=== PATIENT | male | born 1960 | race Caucasian/White ===

== ENCOUNTER → 2016-03-02 | Outpatient (CLI) | payer OTHER ==
[~2016-03-02] MED LIST: ATOR20TA66 PO; ATOR40TA70 PO; CELE100C PO; DIOVAN; FENT1PAT8 TD; HCT25T; HYDR-3731 PO; NIAC1TBM27; PNT40TEC PO; VALS1TAB12; VALS1TAB14 PO; ZLP10T
--- OUTSIDE RECORDS SUMMARY | 2016-03-02 13:43 | XMS REPORT | Continuity of Care Document ---
Author Author [facility] Organization [facility] Address Unknown Phone Unavailable Care Team Providers Care Apartment Manager Name Role Phone CODY GUY MD PCP Insurance Providers Payer Name Policy Number Subscriber Name Relationship Hermilo Bowman [id number] Kathi Purcell 18 Self / Same As Patient [facility] [id number] Kathi Purcell Self / Same As Patient Advance Directives Directive Response Recorded Date/Time Advance Directives No 11/23/15 6:14pm Health Care Power of Service Learning Coordinator No 11/23/15 6:14pm Organ Donor Yes 11/23/15 6:14pm Resuscitation Status Full Code 11/23/15 6:14pm Chief Complaint and Reason for Visit Chief Complaint T-4 COMPRESSION FX, HEAD INJURY, ABD CONTUSION Reason for Visit Head injury Traumatic compression fracture of T4 thoracic vertebra Problems Active Problems Medical Problem Onset Date Status Head injury Unknown Acute Traumatic compression fracture of T4 thoracic vertebra Unknown Acute Medications Current Home Medications Medication Dose Units Route Directions Days/Qty Instructions Start Date Valsartan/Hydrochlorothiazide 1 Each 1 Tab Oral Daily 11/23/15 Atorvastatin Calcium 20 Mg 20 Mg Oral Daily 11/23/15 Celecoxib 100 Mg 100 Mg Oral Twice A Day With Meals 60 11/24/15 Fentanyl 1 Each 25 Mcg Transderm Every 72 Hours 10 11/24/15 Hydrocodone/Acetaminophen 1 Each 1 Each Oral Q4hr for Pain 60 11/24/15 Past Home Medications Medication Directions Ordered Status [Diovan 160/25] , 07/16/07 Discontinued Zolpidem Tartrate 10 Mg Tablet, 07/16/07 Discontinued Hydrochlorothiazide 25 Mg Tablet, 07/16/07 Discontinued Hctz/Valsartan 1 Each Tablet, 02/08/09 Discontinued Niacin/Simvastatin 1 Each Tbmp.24hr, 02/08/09 Discontinued Atorvastatin Calcium 40 Mg Tablet, 40 Mg Oral Daily 06/26/12 Discontinued Pantoprazole Sod 40 Mg Tab, 40 Mg Oral Daily 06/26/12 Discontinued Social History Social History Problem Response Recorded Date/Time Alcohol Use Occasionally Uses 11/23/2015 6:07pm Recreational Drug Use No 11/23/2015 6:07pm Recent Foreign Travel No 11/23/2015 5:59pm Recent Infectious Disease Exposure No 11/23/2015 5:59pm Hospitalization with Isolation Denies 11/24/2015 10:41pm Smoking Status Current Everyday Smoker 11/23/2015 6:06pm Type Used Cigars 11/24/2015 10:41pm Recent Hopitalizations Yes 11/23/2015 6:07pm Hospitalization with Isolation Denies 11/24/2015 10:41pm Query Response Start Date Stop Date Smoking Status Current Everyday Smoker Hospital Discharge Instructions No hospital discharge instructions. Plan of Care Discharge Date 11/24/15 9:45pm Disposition 01 HOME, SELF-CARE Instructions/Education Provided Vertebral Compression Fracture (DC) Forms Provided Follow-Up Fax Prescriptions See Medication Section Referrals CODY GUY MD (Unspecified) - 1 Week Address: [address] [place] [address], [address] [place] [phone] Reason(s) for Referral: CALL TOMORROW TO SCHEDULE A FOLLOW-UP APPOINTMENT FOR 1 WEEK. CAMILA MILLIGAN DO (Unspecified) - 11/30/15 Address: [address] [place] [phone] Reason(s) for Referral: CALL TOMORROW TO SCHEDULE A KYPHOPLASTY Care Plan and Goals Functional Status Query Response Date Recorded Patient Orientation Person Place Time Situation November 24, 2015 10:41pm Comprehension Ability Understands Concepts November 24, 2015 3:00pm Allergies, Adverse Reactions, Alerts No known allergies. Immunizations Name Given Type FLU TRIvalent 5 years - Adult 11/23/15 Administered Vital Signs Acute Vital Signs Vital Response Date/Time Temperature (Fahrenheit) 95.0 degrees F (97.6 - 99.5) 11/24/2015 9:30pm Temperature (Calculated Celsius) 35.72240 degrees C (36.4 - 37.5) 11/24/2015 8:00pm Temperature Source Tympanic 11/24/2015 9:30pm Pulse Rate (adult) 68 bpm (60 - 90) 11/24/2015 9:30pm Respiratory Rate 20 bpm (12 - 24) 11/24/2015 9:30pm O2 Sat by Pulse Oximetry 95 % (88 - 100) 11/24/2015 9:30pm Blood Pressure 135/76 mm Hg 11/24/2015 9:30pm Blood Pressure Mean 111 mm Hg 11/24/2015 8:00pm Pain Numeric Pain Scale 3 11/24/2015 9:30pm Height (Feet) 5 feet 11/23/2015 5:58pm Height (Inches) 7.00 inches 11/23/2015 5:58pm Height (Calculated Centimeters) 170.088009 cm 11/23/2015 5:58pm Weight (Pounds) 238 pounds 11/23/2015 5:58pm Weight (Ounces) 8.0 oz 11/23/2015 5:58pm Weight (Calculated Grams) 780238.78 gm 11/23/2015 5:58pm Weight (Calculated Kilograms) 108.610795 kilograms 11/23/2015 5:58pm Calculated BMI 37.4 11/23/2015 5:58pm Capillary Refill Capillary Refill Less Than 3 Seconds 11/23/2015 12:30pm Results Laboratory Results Test Name Result Units Flags Reference Collection Date/Time Result Date/ Time Comments White Blood Count 14.0 10^3/uL H 4.3-11.0 11/23/2015 1:00pm 11/23/2015 1: 20pm Red Blood Count 5.37 10^6/uL 4.35-5.85 11/23/2015 1:00pm 11/23/2015 1: 20pm Hemoglobin 15.2 G/DL 13.3-17.7 11/23/2015 1:00pm 11/23/2015 1:20pm Hematocrit 44 % 40-54 11/23/2015 1:00pm 11/23/2015 1:20pm Mean Corpuscular Volume 81 FL 80-99 11/23/2015 1:00pm 11/23/2015 1: 20pm Mean Corpuscular Hemoglobin 28 PG 25-34 11/23/2015 1:00pm 11/23/2015 1: 20pm Mean Corpuscular Hemoglobin Concent 35 G/DL 32-36 11/23/2015 1:00pm 1:20pm Red Cell Distribution Width 13.0 % 10.0-14.5 11/23/2015 1:00pm 2015 1:20pm Platelet Count 285 10^3/uL 130-400 11/23/2015 1:00pm 11/23/2015 1:20pm Mean Platelet Volume 10.7 FL H 7.4-10.4 11/23/2015 1:00pm 11/23/2015 1: 20pm Sodium Level 139 MMOL/L 135-145 11/23/2015 1:45pm 11/23/2015 2:24pm Potassium Level 3.9 MMOL/L 3.6-5.0 11/23/2015 1:45pm 11/23/2015 2:24pm Chloride Level 108 MMOL/L H 98-107 11/23/2015 1:45pm 11/23/2015 2:24pm Carbon Dioxide Level 26 MMOL/L 21-32 11/23/2015 1:45pm 11/23/2015 2: 24pm Anion Gap 5 MMOL/L 5-14 11/23/2015 1:45pm 11/23/2015 2:24pm Blood Urea Nitrogen 13 MG/DL 7-18 11/23/2015 1:45pm 11/23/2015 2:24pm Creatinine 0.66 MG/DL 0.60-1.30 11/23/2015 1:45pm 11/23/2015 2:24pm BUN/Creatinine Ratio 20 11/23/2015 1:45pm 11/23/2015 2:24pm Estimat Glomerular Filtration Rate > 60 11/23/2015 1:45pm 2015 2:24pm GFR INTERPRETIVE DATA UNITS FOR ESTIMATED GFR (eGFR): mL/min/1.73 M2 REFERENCE RANGE FOR ESTIMATED GFR (eGFR) eGFR NORMAL eGFR >60 MODERATELY DECREASED eGFR 30-59 SEVERLY DECREASED eGFR 15-29 KIDNEY FAILURE <15 (OR DIALYSIS) Glucose Level 130 MG/DL H 70-105 11/23/2015 1:45pm 11/23/2015 2:24pm Calcium Level 8.3 MG/DL L 8.5-10.1 11/23/2015 1:45pm 11/23/2015 2:24pm Total Bilirubin 0.5 MG/DL 0.1-1.0 11/23/2015 1:45pm 11/23/2015 2:24pm Direct Bilirubin 0.2 MG/DL 0.0-0.3 11/23/2015 1:45pm 11/23/2015 2:24pm Indirect Bilirubin 0.3 MG/DL 11/23/2015 1:45pm 11/23/2015 2:24pm Alkaline Phosphatase 75 U/L 40-136 11/23/2015 1:45pm 11/23/2015 2:24pm Aspartate Amino Transf (AST/SGOT) 19 U/L 5-34 11/23/2015 1:45pm 2015 2:24pm Alanine Aminotransferase (ALT/SGPT) 21 U/L 0-55 11/23/2015 1:45pm 11/22 2:24pm Total Protein 6.0 G/DL L 6.4-8.2 11/23/2015 1:45pm 11/23/2015 2:24pm Albumin 3.7 G/DL 3.2-4.5 11/23/2015 1:45pm 11/23/2015 2:24pm Procedures No known history of procedures. Encounters Encounter Location Arrival/Admit Date Discharge/Depart Date Attending Provider Discharged Inpatient (obs) [facility] 11/23/15 2:24pm 9:45pm JOHANN LLANOS DO Recent Diagnosis Head injury Traumatic compression fracture of T4 thoracic vertebra
--- NOTE | 2016-03-02 14:42 | Diagnostic Imaging Report ---
EXAM: MRI THORACIC SPINE W/O CON INDICATION: COMPRESSION FRACTURE COMPARISON: None. FINDINGS: Mild right apex thoracic curvature. Alignment is otherwise normal. Compression deformity of the T4 vertebral body results in approximately 40% height loss. There is no edema within this vertebral body. No retropulsion of fragments. Vertebral body heights are otherwise maintained. Scattered benign hemangiomas in the T8, T9, T12 and L1 vertebral bodies. Mild scattered degenerative endplate changes result in no significant spinal canal or neural foraminal narrowing. No abnormal signal in the thoracic cord. The visualized paravertebral soft tissues are unremarkable. IMPRESSION: 1. Chronic compression deformity of the T4 vertebral body results in approximately 40% height loss. Vertebral body heights are otherwise maintained. 2. No neural impingement or cord signal abnormality in the thoracic spine. Dictated by: Dictated on workstation # [id number]
== END ==
LOC: RAD 13:40
PROVIDERS: ATTEND Orthopaedic Surgery
DX: S22.040A Wedge compression fracture of fourth thoracic vertebra, initial encounter for closed fracture (principal); X58.XXXA Exposure to other specified factors, initial encounter; Y99.8 Other external cause status
CPT/HCPCS: 72146

== ENCOUNTER 2016-03-25 07:58 | Outpatient (CLI) | payer OTHER ==
[~2016-03-25] VITALS: Ht 170.2 cm; Wt 104.3 kg
--- OUTSIDE RECORDS SUMMARY | 2016-03-25 08:01 | XMS REPORT | Continuity of Care Document ---
Author Author [facility] Organization [facility] Address Unknown Phone Unavailable Care Team Providers Care Plasma Cutting Machine Operator Name Role Phone CODY GUY MD PCP Insurance Providers Payer Name Policy Number Subscriber Name Relationship Hermilo Bowman [id number] Kathi Purcell 20 Self / Same As Patient [facility] [id number] Kathi Purcell Self / Same As Patient Advance Directives Directive Response Recorded Date/Time Advance Directives No 11/23/15 6:14pm Health Care Power of Mobile Home Lot Utility Worker No 11/23/15 6:14pm Organ Donor Yes 11/23/15 [...] GUY MD (Unspecified) - 1 Week Address: [address] [place] [address], [address] [place] [phone] Reason(s) for Referral: CALL TOMORROW TO SCHEDULE A FOLLOW-UP APPOINTMENT FOR 1 WEEK. CAMILA MILLIGAN DO (Unspecified) - 11/30/15 Address: [address] [place] [phone] Reason(s) for Referral: CALL TOMORROW TO [...] - 99.5) 11/24/2015 9:30pm Temperature (Calculated Celsius) 35.87615 degrees C (36.4 - 37.5) 11/24/2015 8:00pm [...] 7.00 inches 11/23/2015 5:58pm Height (Calculated Centimeters) 170.301785 cm 11/23/2015 5:58pm Weight (Pounds) 238 pounds 11/23/2015 5:58pm Weight (Ounces) 8.0 oz 11/23/2015 5:58pm Weight (Calculated Grams) 844065.78 gm 11/23/2015 5:58pm Weight (Calculated Kilograms) 108.266868 kilograms 11/23/2015 5:58pm Calculated BMI 37.4 11/23/2015 [...] Date Attending Provider Discharged Inpatient (obs) [facility] 11/23/15 2:24pm 9:45pm JOHANN LLANOS DO Recent Diagnosis Head injury Traumatic compression fracture of T4 thoracic vertebra
[2016-03-25] MEDS ORDERED: DEXAMETHASONE PF 10 MG/ML (DECADRON) VIAL ONE (08:03)
[2016-03-25 08:09] VITALS: BP 123/89
[2016-03-25 08:40] VITALS: BP 113/82
--- NOTE | 2016-03-25 09:16 | Pain Medicine-Procedure ---
Procedure Pre-Op/Post-Op Diagnosis Diagnosis: Thoracic pain Indications for Operation Thoracic pain Attending Surgeon Luan Procedure Date of Service: Mar 25, 2016 Procedure: Thoracic epidural at the T4-T5 Level under Fluoroscopic Guidance Procedure: Pt was identified in the holding area. After risks, benefits, and alternatives were discussed with the patient, informed consent was obtained. An IV was placed by nursing staff prior to procedure. Patient was brought to the fluoroscopy suite and placed prone on the operating table. A time out was performed. Vital signs were monitored throughout the procedure. The patients neck and mid back was prepped and draped in the usual sterile fashion. The patients skin was anesthetized using 1% Lidocaine. A 18 gauge tuohy needle was inserted and advanced to the T4-T5 epidural space under fluoroscopic guidance using the loss of resistance technique. The needle position was confirmed in the AP and lateral view. After negative aspiration 2 ml of non-ionic contrast was injected under live fluoroscopy which showed good spread of the contrast in the epidural space at the appropriate level, there was no intravascular or subarachnoid spread. Again, after negative aspiration, 3 ml of preservative free normal saline and 10 mg of dexamethasone was injected. The needle was removed and the patient was transferred to the recovery area in stable condition. And after a brief period of observation was discharged to home in stable condition with no new neurologic deficits. Complications None ROBBIE TEJADA MD Mar 25, 2016 9:16 am
== END 2016-03-25 08:43 | disposition home or self-care (01) ==
LOC: CARD 07:58
PROVIDERS: ATTEND Pain Medicine Pain Medicine
DX: M54.6 Pain in thoracic spine (principal); Z79.899 Other long term (current) drug therapy
CPT/HCPCS: 62321

== ENCOUNTER 2016-06-27 12:11 | Outpatient (CLI) | payer OTHER ==
[~2016-06-27] VITALS: Ht 170.2 cm; Wt 104.3 kg
[2016-06-27] MEDS ORDERED: BUPIVACAINE 0.25% 30 ML (SENSORCAINE) VIAL ONE (12:17)
[2016-06-27] MEDS ORDERED: TRIAMCINOLONE ACET (KENALOG-40) 40 MG/ML 1 ML VIAL ONE (12:17)
[2016-06-27 12:28] VITALS: BP 134/102
[2016-06-27] MEDS ORDERED: DEXAMETHASONE PF 10 MG/ML (DECADRON) VIAL ONE (12:33)
[2016-06-27 13:02] VITALS: BP 130/103
--- NOTE | 2016-06-27 16:07 | Pain Medicine-Procedure ---
Procedure Pre-Op/Post-Op Diagnosis Diagnosis: thoracalgia Indications for Operation Mid back pain Attending Surgeon Luan Procedure Date of Service: June 27, 2016 Procedure: Thoracic epidural steroid injection at T4-T5 Level under Fluoroscopic Guidance Procedure: Pt was identified in the holding area. After risks, benefits, and alternatives were discussed with the patient, informed consent was obtained. Patient was brought to the fluoroscopy suite and placed prone on the operating table. A time out was performed. Vital signs were monitored throughout the procedure. The patients neck and mid back was prepped and draped in the usual sterile fashion. The patients skin was anesthetized using 1% Lidocaine. A 18 gauge tuohy needle was inserted and advanced to the T4-T5 epidural space under fluoroscopic guidance using the loss of resistance technique. The needle position was confirmed in the AP and lateral view. After negative aspiration 2 ml of non-ionic contrast was injected under live fluoroscopy which showed good spread of the contrast in the epidural space at the appropriate level, there was no intravascular or subarachnoid spread. Again, after negative aspiration, 3 ml of preservative free normal saline and 10 mg of dexamethasone was injected. The needle was removed and the patient was transferred to the recovery area in stable condition. And after a brief period of observation was discharged to home in stable condition with no new neurologic deficits. Complications None ROBBIE TEJADA MD June 27, 2016 4:07 pm
== END 2016-06-27 13:04 | disposition home or self-care (01) ==
LOC: CARD 12:11
PROVIDERS: ATTEND Pain Medicine Pain Medicine
DX: M54.6 Pain in thoracic spine (principal); S22.04 Fracture of fourth thoracic vertebra
CPT/HCPCS: 62321

== ENCOUNTER 2017-01-05 12:07 | Outpatient (CLI) | payer OTHER ==
[~2017-01-05] VITALS: Ht 170.2 cm; Wt 104.3 kg
[2017-01-05 12:19] VITALS: BP 119/91
[2017-01-05] MEDS ORDERED: DEXAMETHASONE 10 MG/ML (DECADRON) 1 ML VIAL ONE (12:24)
[2017-01-05 13:08] VITALS: BP 138/96
--- NOTE | 2017-01-09 04:07 | OPERATIVE REPORT ---
DATE OF SERVICE: 01/05/2017 DIAGNOSIS: Thoracic spondylosis. PROCEDURE: Fluoroscopic-guided facet medial branch block T3, T4, T5 and T6 on the left side. PROCEDURE IN DETAIL: After obtaining informed consent from the patient, the patient's chart was reviewed. The patient was then brought to the procedure room and placed in prone position. Time-out was performed. The area and the left neck, upper back, lower back was prepped with antiseptic solution and under fluoroscopic guidance, the patient's T3 through T6 was examined and the facet joints listed above were identified. T3 through T6 was identified under fluoroscopy. A 22-gauge 3-1/2 inch spinal needle was inserted and advanced under fluoroscopy down to the area where the pedicle and the transverse process meet and approximately 1 mL of 1% lidocaine was injected at this level. This was then repeated for the remainder of the levels stated above. Afterwards, the needle was removed. Band-Aids were applied to all sites and the patient tolerated the procedure well and was taken to the recovery area in stable condition. COMPLICATIONS: None. Job ID: [id number] DocumentID: [id number] Dictated Date: 01/08/2017 20:28:37 Brick And Tile Making Machine Operator Date: 01/09/2017 01:16:17 Dictated By: JENNIFER GRIFFITHS DO
== END 2017-01-05 13:06 | disposition home or self-care (01) ==
LOC: CARD 12:07
PROVIDERS: ATTEND Pain Medicine Interventional Pain Medicine
DX: M54.16 Radiculopathy, lumbar region (principal); M47.816 Spondylosis without myelopathy or radiculopathy, lumbar region
CPT/HCPCS: 64490

== ENCOUNTER → 2017-03-02 | Outpatient (CLI) | payer OTHER ==
[~2017-03-02] MED LIST changes: +CATHETER FLUSH 10 ML SYR IV PRN; +REGADENOSON 0.4 MG/5 ML SYR (LEXISCAN) IV ONE
[2017-03-02 10:09] VITALS: BP 130/86
== END ==
LOC: CARD 08:10
PROVIDERS: ATTEND Internal Medicine Interventional Cardiology
DX: I10 Essential (primary) hypertension (principal); E78.5 Hyperlipidemia, unspecified; G47.30 Sleep apnea, unspecified; R07.9 Chest pain, unspecified; R42 Dizziness and giddiness; R53.83 Other fatigue
CPT/HCPCS: 78452; 93017

== ENCOUNTER → 2017-03-08 | Outpatient (CLI) | payer OTHER ==
[~2017-03-08] MED LIST changes: -CATHETER FLUSH 10 ML SYR IV PRN; -REGADENOSON 0.4 MG/5 ML SYR (LEXISCAN) IV ONE
--- NOTE | 2017-03-08 17:07 | Diagnostic Imaging Report ---
INDICATION: Cough and congestion. PA and lateral chest obtained at 04:25 p.m. Heart and mediastinal silhouette are normal in appearance. The lungs are clear. There is no pneumothorax or pleural fluid. IMPRESSION: Negative chest. Dictated by: Dictated on workstation # [id number]
== END ==
LOC: RAD 15:48
PROVIDERS: ATTEND Internal Medicine
DX: R05 Cough (principal); R09.81 Nasal congestion; R07.9 Chest pain, unspecified; R06.02 Shortness of breath
CPT/HCPCS: 71046

== ENCOUNTER 2017-03-30 09:15 | Outpatient (RCR) | payer OTHER | END 2017-06-04 | disposition home or self-care (01) | LOC: CARD 09:15 | PROVIDERS: ATTEND Internal Medicine Interventional Cardiology | DX: R42 Dizziness and giddiness (principal); R53.83 Other fatigue | CPT/HCPCS: 93270 ==

== ENCOUNTER 2018-01-05 13:45 | Outpatient (CLI) | payer OTHER | END 2018-01-05 14:25 | disposition home or self-care (01) | LOC: SLEEP 13:45 | PROVIDERS: ATTEND Nurse Practitioner Family | DX: G47.33 Obstructive sleep apnea (adult) (pediatric) (principal); Z72.0 Tobacco use ==

== ENCOUNTER → 2020-05-01 | Outpatient (CLI) | payer OTHER ==
[~2020-05-01] MED LIST changes: +BARIUM SUSPENSION 2.1% (VANILLA SILQ) 450 ML PO ONE; +CATHETER FLUSH 10 ML SYR IV PRN; +HOLD METFORMIN - RECEIVED CONTRAST 20 ML VIAL IV SCH; +IOHEXOL 350 MG/ML 100 ML (OMNIPAQUE 350) VIAL IV ONE; +NS 100 ML (IVPB) BAG IV ONE
[2020-05-01 09:00] LABS: CREATININE SERUM 0.76 MG/DL (0.60-1.30); GFR ESTIMATED > 60
[2020-05-01 09:01] LABS: BUN/CREATININE RATIO 11
--- NOTE | 2020-05-01 10:04 | Diagnostic Imaging Report ---
PROCEDURE: CT abdomen and pelvis with contrast. TECHNIQUE: Multiple contiguous axial images were obtained through the abdomen and pelvis after administration of intravenous contrast. Auto Exposure Controls were utilized during the CT exam to meet ALARA standards for radiation dose reduction. All CT scans use one or more of the following dose optimizing techniques: automated exposure control, MA and/or KvP adjustment based on patient size and exam type or iterative reconstruction. INDICATION: Epigastric pain, elevated white blood cell count, left lower quadrant pain. COMPARISON: No priors. FINDINGS: There are features of acute sigmoid diverticulitis at its middle third. There is perisigmoidal stranding and edema in the fat and mild segmental bowel wall thickening. There is no pelvic or perisigmoidal abscess and there is no resultant bowel obstruction. No pneumatosis or free gas is found. While the splenic and superior mesenteric veins are patent, the extrahepatic portal vein is patent. There is opacification and patency of the right intrahepatic portal venous branches anteriorly and posteriorly. There is however the absence of enhancement of the intrahepatic left portal venous system and there are large aggregate of abscesses in the left hepatic lobe. Lesion in the lateral sector is, in aggregate, 8.6 cm and a lesion in the upper left lobe near the dome is 6.5 cm in aggregate. These lesions are multiseptated and multiloculated. The spleen itself is normal. The splenic vein patent. The pancreas negative. The intrahepatic cava and hepatic veins are patent. The adrenals and kidneys are negative. The urinary bladder appeared normal. The bony structures in the lung bases nonacute. No basilar pleural fluid. IMPRESSION: 1. Findings of sigmoid diverticulitis complicated by presumed septic thrombosis of the intrahepatic left portal vein and multiloculated left hepatic lobe large liver abscesses. Pertinent results have been discussed by phone with Dr. Estrada prior to this dictation. Report faxed to Dr. Estrada at 10:03 AM 05/01/2020/cb Dictated by: Dictated on workstation # [id number]
== END ==
LOC: RAD 08:31
PROVIDERS: ATTEND Internal Medicine
DX: K57.32 Diverticulitis of large intestine without perforation or abscess without bleeding (principal); K75.0 Abscess of liver; I81 Portal vein thrombosis; I82.0 Budd-Chiari syndrome; D72.829 Elevated white blood cell count, unspecified
CPT/HCPCS: 36415; 74177; 82565; 84520

== ENCOUNTER → 2020-06-04 | Outpatient (CLI) | payer OTHER ==
[~2020-06-04] MED LIST changes: -BARIUM SUSPENSION 2.1% (VANILLA SILQ) 450 ML PO ONE; -CATHETER FLUSH 10 ML SYR IV PRN; -HOLD METFORMIN - RECEIVED CONTRAST 20 ML VIAL IV SCH; -IOHEXOL 350 MG/ML 100 ML (OMNIPAQUE 350) VIAL IV ONE; -NS 100 ML (IVPB) BAG IV ONE
--- NOTE | 2020-06-04 11:18 | Diagnostic Imaging Report ---
EXAMINATION: CT abdomen and pelvis without contrast. TECHNIQUE: Multiple contiguous axial images were obtained through the abdomen and pelvis without the use of intravenous contrast. All CT scans use one or more of the following dose optimizing techniques: automated exposure control, MA and/or KvP adjustment based on patient size and exam type or iterative reconstruction. HISTORY: HEPATIC ABSCESS COMPARISON: CT abdomen and pelvis from 05/01/2020. FINDINGS: Lung bases: The lung bases are clear. Solid organs: There has been significant interval decreased size of the hepatic abscesses compared to 05/01/2020. Without IV contrast, the abscess cavities are poorly visualized. The hepatic segment IV abscess measures 3.0 x 3.4 cm. The hepatic segment II abscess measures 3.6 x 3.2 cm. The gallbladder is normal. There is no biliary ductal dilation. Pancreas is normal. Spleen is normal. Adrenal glands are normal. The kidneys are normal without visualized calculus or hydronephrosis. Bowel: The stomach and small bowel are normal without obstruction. There continues to be mild inflammation near a diverticulum in the left lower quadrant of the sigmoid colon (series 2 image 61). Overall, the degree of wall thickening appears to have improved. There are other scattered colonic diverticula. Peritoneum: There is no intraperitoneal free fluid or free air. No suspicious lymphadenopathy. Vasculature: Calcification of the aorta without aneurysm. Musculoskeletal: No suspicious osseous lesion or compression fracture. Pelvis: The prostate gland is normal. There is stable mild bladder wall thickening. IMPRESSION: 1. Interval decreased size of the hepatic abscesses within hepatic segments IV and II compared to 05/01/2020. Evaluation is somewhat limited without IV contrast. 2. There continues to be mild inflammation within the left lower quadrant sigmoid diverticulum, compatible with history of diverticulitis. 3. Stable mild bladder wall thickening. Dictated by: Dictated on workstation # [id number]
== END ==
LOC: RAD 10:15
PROVIDERS: ATTEND Specialist
DX: K75.0 Abscess of liver (principal); N32.89 Other specified disorders of bladder; K57.30 Diverticulosis of large intestine without perforation or abscess without bleeding
CPT/HCPCS: 74176

== ENCOUNTER 2020-06-18 10:38 | Outpatient (CLI) | payer OTHER ==
[~2020-06-18] VITALS: Ht 170.2 cm; Wt 95.3 kg
[2020-06-22] MEDS ORDERED: VALS160T29 PO (13:02)
[2020-06-22] MEDS ORDERED: ACHD5005 PO (13:02)
== END 2020-06-22 13:39 | disposition home or self-care (01) ==
LOC: PREOP 10:38
PROVIDERS: ATTEND Internal Medicine
DX: Z01.818 Encounter for other preprocedural examination (principal); K57.30 Diverticulosis of large intestine without perforation or abscess without bleeding

== ENCOUNTER 2020-06-26 08:01 | Day surgery (SDC) | payer OTHER ==
--- NOTE | 2020-06-17 02:42 | HISTORY AND PHYSICAL ---
DATE OF SERVICE: COLONOSCOPY HISTORY AND PHYSICAL HISTORY OF PRESENT ILLNESS: The patient is a 60-year-old white male seen for followup of hepatic abscesses requiring drainage, likely source from sigmoid related diverticulitis. He has finished up a month's worth of antibiotic therapy. Reports that he has been off of therapy for about the past week and continues to feel well. He notes a little bit of decrease in stamina over baseline, but otherwise is fully recovered. He denied night sweats, chills or fever. He has noted no blood in the stool and has had no abdominal pain or distention. He is being set up for diagnostic colonoscopy on 06/26/2020. He is not aware of any family history for colon cancer. Recent repeat CT scan findings revealed marked reduction in the size of both hepatic abscesses previously in the 6 x 8 cm range, now both are down to the 3 cm range. No pancreatic abnormalities noted. Reported mild inflammatory change in the sigmoid colon much improved as well. No significant adenopathy noted. PHYSICAL EXAMINATION: GENERAL: Reveals a white male, appears to be in no acute distress. Weight was up 2.6 pounds over the past month to 213. VITAL SIGNS: Blood pressure 130/90. CHEST: Clear. CARDIOVASCULAR: Revealed a regular rate and rhythm without murmur, S3 or S4. ABDOMEN: Soft, supple without mass, organomegaly or tenderness. EXTREMITIES: Reveal no cyanosis, clubbing or edema. ASSESSMENT AND PLAN: 1. Hepatic abscesses, resolving. No evidence for any symptomatic ongoing infection, presumed diverticular etiology. The patient is being set up for diagnostic colonoscopy on 06/26/2020. Prep instructions with Suprep kit were given and questions answered. 2. Hypertension. The patient has been off of antihypertensive medication. His blood pressure is creeping up. We will add back Diovan at a lower dose and hold diuretic therapy for now, initiating 160 mg Diovan tab daily and the patient was advised to go back on statin therapy. We will see him back in 2 months with repeat chemistry panel, lipid panel and A1c. Job ID: [id number] DocumentID: [id number] Dictated Date: 06/11/2020 16:50:52 Seal Delivery Vehicle Team Technician Date: 06/11/2020 17:13:24 Dictated By: CODY GUY MD
[~2020-06-26] VITALS: Ht 170.2 cm; Wt 95.3 kg
[~2020-06-26 08:01] MED LIST changes: +ACHD5005 PO; +LACTATED RINGERS 1,000 ML IV ONE; +VALS160T29 PO
[2020-06-26 08:05] VITALS: BP 151/107
[2020-06-26] MEDS ORDERED: LACTATED RINGERS 1,000 ML IV STA (08:07)
[2020-06-26] MEDS ORDERED: LIDOCAINE JELLY 2% 6 ML SYRINGE MM PRN (08:15)
--- NOTE | 2020-06-26 08:25 | Pre-Op Note & Conscious Sedat ---
Pre-Operative Progress Note H&P Reviewed The H&P was reviewed, patient examined and no changes noted. Date H&P Reviewed: June 26, 2020 Time H&P Reviewed: 08:24 Conscious Sedation Pre-Proced ASA Score 2 For ASA 3 and 4: Consider anesthesia and medical clearance. Also, for patients with a history of failed moderate sedation consider anesthesia. Airway Lungs Heart ASA score ASA 1: a normal healthy patient ASA 2: a patient with a mild systemic disease (mid diabetes, controlled hypertension, obesity ASA 3: a patient with a severe systemic disease that limits activity (angina, COPD, prior Myocardial infarction) ASA 4: a patient with an incapacitating disease that is a constant threat to life (CHF, renal failure) ASA 5: a moribund patient not expected to survive 24 hrs. (ruptured aneurysm) ASA 6: a declared brain- patient whose organs are being harvested. For emergent operations, add the letter E after the classification Mallampati Classification Grade 3 Sedation Plan Analgesia, Amnesia, Plan communicated to team members, Discussed options with patient/fam, Discussed risks with patient/fam The patient is an appropriate candidate to undergo the planned procedure, sedation, and anesthesia. The patient immediately re-assessed prior to indication. CODY GUY MD June 26, 2020 08:24
[2020-06-26] MEDS ORDERED: PROPOFOL INJECTION 50 ML IV ONE ×2 (08:36→08:58)
[2020-06-26] MEDS ORDERED: MIDAZOLAM 2 MG/2 ML (VERSED) VIAL ONE (08:36)
[2020-06-26 09:25] VITALS: BP 106/71
[2020-06-26 09:30] VITALS: BP 105/69
[2020-06-26 09:35] VITALS: BP 139/85
[2020-06-26 09:40] VITALS: BP 144/80
[2020-06-26 09:55] VITALS: BP 141/104
--- NOTE | 2020-06-26 14:49 | Anesthesia-General Post-Op ---
MAC Patient Condition Mental Status/LOC: Same as Preop Cardiovascular: Satisfactory Nausea/Vomiting: Absent Respiratory: Satisfactory Pain: Controlled Complications: Absent Post Op Complications Complications None Follow Up Care/Instructions Patient Instructions None needed. Anesthesiology Discharge Order Discharge Order Patient is doing well, no complaints, stable vital signs, no apparent adverse anesthesia problems. No complications reported per nursing. MILLY MCKINLEY CRNA June 26, 2020 14:49
--- NOTE | 2020-06-26 15:54 | OPERATIVE REPORT ---
DATE OF SERVICE: COLONOSCOPY SUMMARY INDICATION FOR THE PROCEDURE: Diverticulitis with hepatic abscess. DESCRIPTION OF PROCEDURE: The patient was placed in the left lateral decubitus position. Prior to undergoing colonoscopy, digital rectal evaluation was performed. Anal sphincter tone was normal and the perianal reflexes intact. Prostate is normal in size, anodular, nontender to digital inspection. No abnormalities were noted on digital inspection of the distal rectal vault or anal canal. The patient did have nonthrombosed external hemorrhoid noted at 3 to 4 o'clock position. The colonoscope was then inserted into the rectum and under direct visualization advanced to cecum. The cecum was identified by identification of ileocecal valve and cecal strap. Photographic documentation was obtained. Quality of the prep was good. FINDINGS: One external hemorrhoid was noted at 3 to 4 o'clock position, nonthrombosed. No internal hemorrhoids were noted. The rectum was unremarkable. Several small sigmoid diverticulum were noted and one inflammatory appearing polyp was noted in the mid sigmoid colon. It was biopsied and ablated with small amount of blood loss. The descending colon, splenic flexure, transverse colon, hepatic flexure, ascending colon and cecum were unremarkable. ASSESSMENT: Mild diverticular disease confined to the sigmoid colon was present with one inflammatory appearing polyp in the mid sigmoid colon, 25 cm from the anal verge. It was biopsied and ablated and submitted for histopathology. We will await pathology findings before recommending future surveillance colonoscopy. 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
== END 2020-06-26 10:05 | disposition home or self-care (01) ==
LOC: ENDO 08:01
PROVIDERS: ATTEND Internal Medicine
DX: K63.5 Polyp of colon (principal); K57.32 Diverticulitis of large intestine without perforation or abscess without bleeding; K57.30 Diverticulosis of large intestine without perforation or abscess without bleeding; K64.4 Residual hemorrhoidal skin tags; K75.0 Abscess of liver; I10 Essential (primary) hypertension; G47.33 Obstructive sleep apnea (adult) (pediatric); Z79.891 Long term (current) use of opiate analgesic; Z79.899 Other long term (current) drug therapy